=== PATIENT | male | born 1950 | race African-American/Black ===

== ENCOUNTER 2016-12-03 09:00 | Day surgery (SDC) | payer OTHER ==
[~2016-12-03 09:00] MED LIST: Buffered Lidocaine 1% SYR 3ML* 3 ML/SYR SYRINGE INTRADERM ONE; Dexamethasone IV* 4 MG/ML 1 ML (4 MG) IV SLOW PU ONE; Famotidine IV* 10 MG/ML 2 ML (20 mg) IV ONE; Lidocaine 2% EPI 1:200000 MPF* 20 ML VIAL ONE; Povidone Iodine 5% OPTH* 30 ML BTL ONE
[2016-12-03] MEDS ORDERED: Famotidine IV* 10 MG/ML 2 ML (20 mg) ONE (09:59)
[2016-12-03] MEDS ORDERED: Dexamethasone IV* 4 MG/ML 1 ML (4 MG) ONE (10:00)
[2016-12-03] MEDS ORDERED: Proparacaine 0.5% OPHTH.SOL* 15 ML BTL ONE (10:07)
[2016-12-03] MEDS ORDERED: Propofol* 10 MG/ML 20 ML BTL IV PUSH ONE (11:13)
[2016-12-03] MEDS ORDERED: fentaNYL* 50 MCG/ML 2 ML VIAL (100 MCG VIAL) ONE (11:13)
[2016-12-03] MEDS ORDERED: Ondansetron INJ* 2 MG/ML VIAL ONE (11:13)
[2016-12-03] MEDS ORDERED: Midazolam* 1 MG/ML 5 ML VIAL (5 MG) ONE (11:13)
[2016-12-03] MEDS ORDERED: Neomycin/Polymy/Dex OPTH.SUSP* MAXITROL 0.1% 5 ML ONE (11:50)
[2016-12-03] MEDS ORDERED: BSS OPTH.SOL* BTL ONE (12:31)
[2016-12-03 12:36] VITALS: BP 129/65
--- NOTE | 2016-12-04 | OP ---
DATE OF OPERATION: 12/03/16 - [facility] DATE OF : 52 SURGEON: Prudencio Carolina MD ANESTHESIA: Local with MAC. PREOPERATIVE DIAGNOSIS: Pterygium, right eye. POSTOPERATIVE DIAGNOSIS: Pterygium, right eye. OPERATIVE PROCEDURE: Pterygium excision, right eye with conjunctival autograft. COMPLICATIONS: None. DESCRIPTION OF PROCEDURE: The patient was prepped and draped in the usual sterile fashion in the operating room. Lid speculum was placed. The eye was inspected. There was a nasal pterygium with some suspicious characteristics that was extending on to the cornea. The area under the lesion was infused with 2% lidocaine with epinephrine approximately 0.3 cc and topical 2% lidocaine with epinephrine was given. The area on the conjunctiva of the lesion was dissected and dissected down to the bare sclera using the Filiberto scissors. Hemostasis was achieved with low temp cautery. The corneal component was excised using another #15 blade. The lesion was sent to pathology. The conjunctiva allograft was then prepared. Incision was carried about 8 mm posterior to the superior limbus towards the 12 o'clock position and this was made about 4 mm wide and carried back through but leaving a stump of tissue that was still connected. This was rotated into position and sutured onto the bare sclera and onto the corneal limbus. The sutures to the bare sclera were made with a 6-0 gut and to the corneal limbus using 10-0 nylon sutures. Maxitrol was given and the eye was patched. [id number]/[facility] #: [id number] [facility]ICAL CENTERKimi
== END 2016-12-03 12:35 | disposition home or self-care (01) ==
LOC: OREAST 09:00
PROVIDERS: ATTEND Specialist
DX: H11.001 Unspecified pterygium of right eye (principal); D09.21 Carcinoma in situ of right eye; Z79.82 Long term (current) use of aspirin; I10 Essential (primary) hypertension
CPT/HCPCS: 88304; 88341; 88342; A9270-GY; J1100; J2250; J2405; J2704; J3010

== ENCOUNTER 2018-10-29 13:12 | Emergency (ER) | payer OTHER ==
--- NOTE | 2018-10-29 17:34 | ED ---
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 He reports that before this episode he was quiet for a few days. He has not had slurred speech since, but reports that he still is hesitant when speaking. He has been feeling more active recently. Now he feels fine other than pain all over his body but mostly in his knees and feet which he rates as a 10/10 in severity. He believes his pain is due to arthritis. He denies any SOB, N/V, abdominal pain, urinary symptoms or weakness. He claims that sometimes his fingertips in his right hand go numb. He has a Hx of gout and takes Indomethacin. - History of Current Complaint Chief Complaint: EDNeurologicalDeficit Stated Complaint: PAIN FROM HEAD TO TOE PER PT Time Seen by Provider: 10/29/18 16:47 Hx Obtained From: Patient Onset/Duration: Sudden Onset, Started days ago, Still Present Timing: Constant Onset Severity: Moderate Current Severity: Mild Pain Intensity: 10 Pain Scale Used: 0-10 Numeric Character: Other: - slurred speech Aggravating: Nothing Alleviating: Nothing Associated Signs and Symptoms: Positive: Numbness. Negative: Nausea/Vomiting, Fever, Chest Pain, Shortness of Breath - Allergy/Home Medications Allergies/Adverse Reactions: Allergies Allergy/AdvReac Type Severity Reaction Status Date / Time No Known Allergies Allergy Verified 10/29/18 13:16 PMH/Surg Hx/FS Hx/Imm Hx Cardiovascular History: Reports: Hx Hypertension - ON MEDIATION FOR Denies: Hx Pacemaker/ICD GI History: Reports: Other GI Disorders - GOUT Musculoskeletal History: Denies: Hx Rheumatoid Arthritis, Hx Osteoporosis Sensory History: Reports: Hx Contacts or Glasses - GLASSES Denies: Hx Hearing Aid Opthamlomology History: Reports: Hx Contacts or Glasses - GLASSES - Surgical History Surgery Procedure, Year, and Place: [place] [facility] [place]est[place] Reactions: No Infectious Disease History: No Infectious Disease History: Denies: Traveled Outside the [place] in Last 30 Days - Family History Known Family History: Negative: Blood Disorder - Social History Alcohol Use: Daily Alcohol Amount: 1 PER DAY Substance Use Type: Reports: None Smoking Status (MU): Never Smoked Tobacco Have You Smoked in the Last Year: No Review of Systems Negative: Fever Negative: Chest Pain Negative: Shortness Of Breath Negative: Abdominal Pain, Vomiting, Nausea Positive: no symptoms reported Positive: Numbness, Slurred Speech. Negative: Weakness All Other Systems Reviewed And Are Negative: Yes Physical Exam - Summary Physical Exam Summary: Constitutional: Well-developed, Well-nourished, Alert. (-) Distressed Skin: Warm, Dry HENT: Normocephalic; Atraumatic Eyes: Conjunctiva normal Neck: Musculoskeletal ROM normal neck. (-) JVD, (-) Stridor, (-) Tracheal deviation Cardio: Rhythm regular, rate normal, Heart sounds normal; Intact distal pulses; The pedal pulses are 2+ and symmetric. Radial pulses are 2+ and symmetric. (-) Murmur Pulmonary/Chest wall: Effort normal. (-) Respiratory distress, (-) Wheezes, (-) Rales Abd: Soft, (-) tenderness, (-) Distension, (-) Guarding, (-) Rebound Musculoskeletal: (-) Edema Lymph: (-) Cervical adenopathy Neuro: Alert, Oriented x3, Neurologically intact Psych: Mood and affect Normal Triage Information Reviewed: Yes Vital Signs On Initial Exam: Initial Vitals Temp Pulse Resp BP Pulse Ox 96.7 F 102 14 140/108 97 10/29/18 13:17 10/29/18 13:17 10/29/18 13:17 10/29/18 13:17 10/29/18 13:17 Vital Signs Reviewed: Yes - [place] Coma Scale Best Eye Response: 4 - Spontaneous Best Motor Response: 6 - Obeys Commands Best Verbal Response: 5 - Oriented Coma Scale Total: 15 Diagnostics - Vital Signs Vital Signs Temp Pulse Resp BP Pulse Ox 10/29/18 16:50 12 10/29/18 16:16 97.4 F 97 14 175/96 95 10/29/18 13:17 96.7 F 102 14 140/108 97 - Laboratory Result Diagrams: 10/29/18 17:48 10/29/18 17:48 Lab Statement: Any lab studies that have been ordered have been reviewed, and results considered in the medical decision making process. - Radiology CXR Radiology Interpretation Completed By: ED Physician Summary of Radiographic Findings: Elevated left hemidiaphram, no acute disease. Pending official imaging report. - CT Brain CT Interpretation Completed By: Radiologist Summary of CT Findings: 1. There is age-related diffuse cerebral and cerebellar volume loss and chronic. microvascular ischemic disease. 2. No acute intracranial pathology. ED physician has reviewed this imaging report. - EKG 13:32 Cardiac Rate: NL - 99 bpm EKG Rhythm: Sinus Rhythm Summary of EKG Findings: Normal sinus rhythm at 99 bpm, prolonged SC, normal QRS , normal QTc, normal axis, normal ST, normal T-waves, nonspecific EKG with a prolonged SC. 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 Non-Paretic Hand: Both Correctly Best Gaze (Only Horizontal Eye Movement): Normal Visual Field Testing: No Visual Loss Facial Paresis-Pt to Smile & Close Eyes or Grimace Symmetry: Normal/Symmetrical Motor Function - Right Arm: No Drift-Holds 10 Seconds Motor Function - Left Arm: No Drift-Holds 10 Seconds Motor Function - Right Leg: No Drift-Holds 10 Seconds Motor Function - Left Leg: No Drift-Holds 10 Seconds Limb Ataxia-Must be out of Proportion to Weakness Present: Absent Sensory (Use Pinprick to Test Arms/Legs/Trunk/Face): Normal Best Language (Describe Picture, Name Items): No Aphasia Dysarthria (Read Several Words): Normal Extinction and Inattention: No Abnormality Total Score: 0 Re-Evaluation - Re-Evaluation First Eval Re-Evaluation Time: 19:17 Change: Unchanged Comment: Discussed results. Pt requesting pain medication. He will be given [place]. 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 The physical exam was unremarkable. GCS: 15, NIH: 0. Bloodwork, chemistries and urines obtained. Urine Urobilinogen positive, trace Ur Leukocyte Esterase, Ur Squamous Epith Cells. Brain CT impression: 1. There is age-related diffuse cerebral and cerebellar volume loss and chronic. microvascular ischemic disease. 2. No acute intracranial pathology. CXR showed Elevated left hemidiaphram, no acute disease. EKG at 13:32 Normal sinus rhythm at 99 bpm, prolonged SC, normal QRS, normal QTc, normal axis, normal ST, normal T-waves, nonspecific EKG with a prolonged SC. In the ED course the patient was given [place] PO. The patient will be discharged with a prescription for Medrol Dosepack. The patient is agreeable with this plan. - Diagnoses Provider Diagnoses: Focal neurological deficit - Physician Notifications Discussed Care Of Patient With: Imer Blake Time Discussed With Above Provider: 19:00 Instructed by Provider To: Other - recommends follow up as an outpatient Discharge - Sign-Out/Discharge Documenting (check all that apply): Patient Departure - DC Patient Received Moderate/Deep Sedation with Procedure: No - Discharge Plan Condition: Good Disposition: HOME Prescriptions: methylPREDNISolone [Medrol Dosepak 4 MG*] 4 mg PO .SEE LIZ INSTRUCTION #21 tab Patient Education Materials: Stroke (DC) Print Language: SAO TOMEAN Referrals: Song Keller MD [Primary Care Provider] - Imer Blake MD [Medical Doctor] - Additional Instructions: Call your primary care doctor tomorrow. Dr. Blake's office will call you tomorrow as well. - Billing Disposition and Condition Condition: GOOD Disposition: Home - Attestation Statements Document Initiated by Scribe: Yes Documenting Scribe: Ti Christie Provider For Whom Diane is Documenting (Include Credential): Genoveva Forte MD Scribe Attestation: I, Ti Christie, scribed for Genoveva Roper MD on 10/29/18 at 2244. Scribe Documentation Reviewed: Yes Provider Attestation: The documentation as recorded by the Ti hyatt accurately reflects the service I personally performed and the decisions made by me, Genoveva Roper MD Status of Scribe Document: Viewed
[2018-10-29 17:59] LABS: ABS Basophils 0 10^3/ul (0-0.2); ABS Eosinophils 0.5 10^3/ul (0-0.6); ABS Lymphocytes 0.7 10^3/ul (1.0-4.8); ABS Monocytes 0.5 10^3/ul (0-0.8); ABS Neutrophils 3.9 10^3/ul (1.5-7.7); ABS Nucleated RBC 0 10^3/ul; Eosinophil % 9.5 %; Hematocrit 43 % (36-46); Hemoglobin 14.9 g/dL (14.0-18.0); Lymphocyte % 12.4 %; Mean Corpuscular HGB Conc 35 g/dL (31-36); Mean Corpuscular Hemoglobin 30 pg (27-31); Mean Corpuscular Volume 88 fL (80-94); Nucleated Red Blood Cells % 0.1; Platelet Count 173 10^3/uL (150-450); Red Blood Count 4.93 10^6 /uL (4.18-5.48); Red Cell Distribution Width 14 % (10.5-15); White Blood Count 5.7 10^3/uL (3.5-10.8)
[2018-10-29 18:10] LABS: INR 1.08 (0.77-1.02)
[2018-10-29 18:31] LABS: Albumin 4.1 g/dL (3.2-5.2); Albumin/Globulin Ratio 1.5 (1-3); BUN/Creatinine Ratio 17.2 (8-20); Calcium 9.3 mg/dL (8.6-10.3); EGFR African American 64.3 (>60); EGFR Non-African American 53.2 (>60); Globulin 2.8 g/dL (2-4); Potassium 4.2 mmol/L (3.5-5.0); Total Bilirubin 0.5 mg/dL (0.2-1.0); Total Protein 6.9 g/dL (6.4-8.9)
[2018-10-29 18:55] LABS: Urine Appearance Clear; Urine Bacteria Absent (Absent); Urine Bilirubin Negative (Negative); Urine Blood Negative (Negative); Urine Color Yellow; Urine Glucose Negative (Negative); Urine Ketones Negative (Negative); Urine Nitrite Negative (Negative); Urine Protein Negative (Negative); Urine Red Blood Cell Absent (Absent); Urine Specific Gravity 1.013 (1.010-1.030); Urine Squamous Epithelial Cell Present (Absent); Urine Urobilinogen Positive (Negative); Urine White Blood Cell Trace(0-5/hpf) (Absent)
[2018-10-29] MEDS ORDERED: HYDROcodone/ACETAMIN 5-325 MG* 1 TAB PO ONE (19:25)
[2018-10-29] MEDS ORDERED: predniSONE TAB* 20 MG PO ONE (19:26)
[2018-10-29 19:39] VITALS: BP 142/95
== END 2018-10-29 19:38 | disposition home or self-care (01) ==
LOC: ED 13:12
DX: R29.818 Other symptoms and signs involving the nervous system (principal); I67.82 Cerebral ischemia; R94.31 Abnormal electrocardiogram [ECG] [EKG]; R91.8 Other nonspecific abnormal finding of lung field; I10 Essential (primary) hypertension; M10.9 Gout, unspecified; Z79.899 Other long term (current) drug therapy
CPT/HCPCS: 36415; 70450; 71046; 80053; 81003; 81015; 83605; 84484; 85025; 85610; 87086; 93005; 99282

== ENCOUNTER 2023-02-11 10:46 | Observation (INO) ==
[2023-02-11 11:12] LABS: ABS Lymphocytes 0.7 10^3/uL (1.0-4.8); ABS Neutrophils 11.6 10^3/uL (1.5-7.6); ABS Nucleated RBC 0.01 10^3/ul; Hematocrit 43.1 % (38-53); Lymphocyte % 4.9 %; Mean Corpuscular Hgb Conc 34.8 g/dL (31-36); Mean Corpuscular Volume 86.3 fL (80-97); Mean Platelet Volume 8.5 fL (7.5-11.2); Nucleated Red Blood Cells % 0.1 /100 WBC (0.0-0.4); Platelet Count 274 10^3/uL (150-450); Red Blood Count 4.99 10^6/uL (4.06-5.63); Red Cell Distribution Width 13.8 % (12-17); White Blood Count 13.2 10^3/uL (3.6-10.2)
[2023-02-11 11:25] LABS: INR 1.58 (0.88-1.18)
[2023-02-11] MEDS ORDERED: NS 0.9% 1000 ml BAG 1,000 ML IV ONE ×2 (11:33→11:54)
[2023-02-11 11:36] LABS: Albumin 3.6 g/dL (3.2-5.2); Albumin/Globulin Ratio 0.9 (1-3); Calcium 9.5 mg/dL (8.6-10.3); Creatinine, Serum 1.73 mg/dL (0.67-1.17); Globulin 3.8 g/dL (2-4); Potassium 3.6 mmol/L (3.5-5.0); Total Bilirubin 2.3 mg/dL (0.2-1.0); Total Protein 7.4 g/dL (6.4-8.9); eGFR CKD-EPI 41.7 (>60)
[2023-02-11] MEDS ORDERED: Azithromycin 500 mg/250 ml NS 500 MG/250 ML BAG IVPB ONE (11:53)
[2023-02-11] MEDS ORDERED: cefTRIAXone 1 gm/50 mL D5W 1 GM/50 ML BAG IV ONE (11:53)
[2023-02-11] MEDS ORDERED: Acetaminophen IV 1 GM/100ML 1,000 MG/100 ML BAG IV ONE (11:53)
[2023-02-11] MEDS ORDERED: Iodixanol (CONTRAST) 320 MG/ML 100 ML SDV IV ONE (12:08)
[2023-02-11] MEDS ORDERED: Albuterol HFA INHALER 8 gm MDI INH ONE (12:27)
[2023-02-11 12:56] LABS: High Sensitivity Troponin 1 Hr 18 pg/mL (<20)
[2023-02-11 12:59] LABS: Magnesium 1.6 mg/dL (1.9-2.7)
[2023-02-11] MEDS ORDERED: Enoxaparin 40 MG/0.4 ML SYR SUBCUT SCH (15:00)
[2023-02-11] MEDS ORDERED: Magnesium Sulfate 2 gm BAG 2 GM/50 ML BAG IVPB ONE (17:23)
[2023-02-11] MEDS ORDERED: Phytonadione Oral Solution 5 MG/25 ML UDC PO ONE (18:00)
[2023-02-11 18:43] LABS: Uric Acid 8.2 mg/dL (4.4-7.6)
[2023-02-11] MEDS ORDERED: Senna TAB 8.6 mg TAB PO SCH (21:00)
[2023-02-11 22:37] LABS: Osmolality Serum 281 mOsm/kg (275-295)
[2023-02-12 05:58] LABS: ABS Lymphocytes 0.4 10^3/uL (1.0-4.8); ABS Monocytes 0.9 10^3/uL (0.0-1.1); ABS Neutrophils 8.6 10^3/uL (1.5-7.6); ABS Nucleated RBC 0.02 10^3/ul; Eosinophil % 0.3 %; Hematocrit 36.7 % (38-53); Hemoglobin 13.1 g/dL (13.2-16.3); Lymphocyte % 4.3 %; Mean Corpuscular Hemoglobin 30.5 pg (27-33); Mean Corpuscular Hgb Conc 35.6 g/dL (31-36); Mean Corpuscular Volume 85.6 fL (80-97); Mean Platelet Volume 8.2 fL (7.5-11.2); Nucleated Red Blood Cells % 0.2 /100 WBC (0.0-0.4); Platelet Count 223 10^3/uL (150-450); Red Blood Count 4.28 10^6/uL (4.06-5.63); Red Cell Distribution Width 13.5 % (12-17)
[2023-02-12 06:06] LABS: Activated Partial Thrombo Time 30.3 seconds (26.0-38.0); INR 1.61 (0.88-1.18)
[2023-02-12 06:16] LABS: Albumin 3.1 g/dL (3.2-5.2); Albumin/Globulin Ratio 0.9 (1-3); Calcium 8.8 mg/dL (8.6-10.3); Creatinine, Serum 1.34 mg/dL (0.67-1.17); Globulin 3.4 g/dL (2-4); Magnesium 1.9 mg/dL (1.9-2.7); Potassium 3.6 mmol/L (3.5-5.0); Total Bilirubin 1.3 mg/dL (0.2-1.0); Total Protein 6.5 g/dL (6.4-8.9); eGFR CKD-EPI 56.6 (>60)
[2023-02-12] MEDS ORDERED: Magnesium Sulfate 2 gm BAG 2 GM/50 ML BAG IVPB ONE (06:42)
[2023-02-12] MEDS ORDERED: Polyethylene Glycol 3350 17 GM PACKET PO SCH (09:00)
[2023-02-12] MEDS ORDERED: cefTRIAXone 1 gm/50 mL D5W 1 GM/50 ML BAG IV SCH (13:00)
[2023-02-12 14:05] VITALS: BP 127/73
[2023-02-12] MEDS ORDERED: Azithromycin 500 mg/250 ml NS 500 MG/250 ML BAG IVPB SCH (15:00)
== END 2023-02-12 16:30 | disposition home or self-care (01) ==
LOC: ED 10:46 → EDHOLD 14:17 → INTOOBSV 14:17 → MED 19:45
PROVIDERS: ADMIT Internal Medicine; ATTEND Internal Medicine